=== PATIENT | male | born 1955 | race Hispanic/Latino ===

== ENCOUNTER 2020-02-17 05:20 | Day surgery (SDC) | payer OTHER ==
[2020-02-14 08:35] VITALS: BP 135/73
[~2020-02-17] VITALS: Ht 175.3 cm; Wt 88.4 kg
[2020-02-17] VITALS (16 sets, daily range): BP systolic 101–134; BP diastolic 58–81
[~2020-02-17 05:20] MED LIST: ASPI-556 PO; CITA-107 PO; LOSA100T58 PO; METF-446 PO; POTA10CA44 PO; PRAZ2CAP2 PO; SIMV80TA91 PO
[2020-02-17] MEDS ORDERED: CEFAZOLIN SODIUM 1 GM VIAL IVP SCH (06:00)
[2020-02-17] MEDS ORDERED: CYAN250014 PO (06:56)
[2020-02-17] MEDS ORDERED: ASCO250T24 PO (06:57)
[2020-02-17] MEDS ORDERED: LACTATED RINGERS 1000ML 0 ML IV ONE (07:00)
[2020-02-17] MEDS ORDERED: SODIUM CHLORIDE 0.9% 1000ML 1,000 ML IV ONE (07:01)
[2020-02-17] MEDS ORDERED: DEXAMETHASONE SOD PHOSPHATE 10MG/ML 1ML VIAL ONE (08:55)
[2020-02-17] MEDS ORDERED: ONDANSETRON HCL 4 MG/2 ML VIAL ONE (08:55)
[2020-02-17] MEDS ORDERED: PROPOFOL 10 MG/ML 20ML VIAL IV ONE (08:55)
[2020-02-17] MEDS ORDERED: MIDAZOLAM HCL 1 MG/ML 2ML VIAL ONE (08:55)
[2020-02-17] MEDS ORDERED: LIDOCAINE PF 2% 5ML ABBOJECT ONE (08:55)
[2020-02-17] MEDS ORDERED: ROCURONIUM 10MG/1ML SYR 10 MG/ML ML ONE (08:56)
[2020-02-17] MEDS ORDERED: FENTANYL CITRATE PF 50 MCG/1 ML 2ML VIAL ONE (08:56)
[2020-02-17] MEDS ORDERED: EPHEDRINE SULFATE 50 MG/ML AMPULE ONE (09:15)
[2020-02-17] MEDS ORDERED: NEOSTIGMINE 5MG/5ML SYR IV ONE (10:01)
[2020-02-17] MEDS ORDERED: GLYCOPYRROLATE 1 MG/5 ML SYRINGE ONE (10:01)
[2020-02-17] MEDS ORDERED: CEPH500B PO (10:13)
[2020-02-17] MEDS ORDERED: IBUP-2070 PO (10:13)
[2020-02-17] MEDS ORDERED: ACET1TAB12 PO (10:13)
[2020-02-17] MEDS ORDERED: KETOROLAC TROMETHAMINE 30MG/ML ONE (10:25)
[2020-02-17] MEDS ORDERED: MEPERIDINE-PF 25 MG/ML SYG ONE (10:25)
--- NOTE | 2020-02-17 11:18 | NUR ---
RECEIVE PT RECEIVED FROM PACU VIA STRETCHER AWAKE ALERT ORIENTED X3. PT STATES HE HAS SOME PAIN TO RIGHT KNEE. RIGHT KNEE ELEVATED, ICE PACK APPLIED. DRESSING TO RIGHT KNEE DRY AND INTACT, NO SWELLING NO OOZING NOTED. WILL CALL FOR DISCHARGE INSTRUCTIONS. CALL CARMICHAEL WITHIN REACH.
--- NOTE | 2020-02-17 12:10 | NUR ---
DISCHARGE PT DISCHARGED VIA WHEELCHAIR WITH . DISCHARGE INSTRUCTIONS GIVEN TO VIA TELEPHONE, VERBALIZED UNDERSTANDING. PER PT AND , PT HAS CRUTCHES AND KNOWS HOW TO USE CRUTCHES. PT TOLERATED ORAL FLUIDS WELL. DRESSING TO RIGHT KNEE REMAINS DRY AND INTACT, NO OOZING NO SWELLING NOTED. PER PT, KNEE PAIN RELIEVED WITH ICE PACK, PAIN ONLY WHEN BENDING KNEE.
== END 2020-02-17 12:10 | disposition home or self-care (01) ==
LOC: DAH 05:20
PROVIDERS: ATTEND Orthopaedic Surgery
DX: M23.200 Derangement of unspecified lateral meniscus due to old tear or injury, right knee (principal); M94.261 Chondromalacia, right knee; M25.561 Pain in right knee; G89.29 Other chronic pain; G47.33 Obstructive sleep apnea (adult) (pediatric); I10 Essential (primary) hypertension; E78.5 Hyperlipidemia, unspecified; E11.9 Type 2 diabetes mellitus without complications; Z90.49 Acquired absence of other specified parts of digestive tract; Z79.84 Long term (current) use of oral hypoglycemic drugs; Z79.899 Other long term (current) drug therapy; Z79.82 Long term (current) use of aspirin; Z98.890 Other specified postprocedural states; Z80.0 Family history of malignant neoplasm of digestive organs; Z82.49 Family history of ischemic heart disease and other diseases of the circulatory system; Z11.59 Encounter for screening for other viral diseases
CPT/HCPCS: 29881; 82948 ×2; A4215; A4221; A4222; A4223; A4606; A4649 ×2; A4663; A4930; A6223; J0690; J1100; J1885; J2001; J2175; J2250; J2405; J2704; J2710; J3010; J3490 ×2; J7030 ×2; U0003; 36415; 87635; J7120